=== PATIENT | male | born 1980 | race Asian ===

== ENCOUNTER 2017-04-14 19:56 | Emergency (ER) | payer SELFPAY ==
--- NOTE | 2017-04-14 20:33 | ED Physician Chart ---
Chief Complaint/HPI - Patient Information Date Seen:: 04/14/17 Time Seen:: 20:20 Chief Complaint:: anxiety History of Present Illness:: At work patient was apparently in the position on the floor shaking. Bystanders called 911. Patient complains of neck and back pain starting this am. Patient states he is under a lot of stress at work and has not been able sleep for the last 2 days. Allergies:: Allergies Allergy/AdvReac Type Severity Reaction Status Date / Time No Known Allergies Allergy Verified 04/14/17 20:12 Vitals:: Vital Signs - 8 hr 04/14/17 20:00 Temp 98.6 F HR 122 RR 21 BP 155/95 O2 Sat % 100 Historian:: Patient Review:: Nurse's Note Reviewed Review of Systems - Review of Systems General/Constitutional: No fever, No chills Skin: No skin lesions Head: No headache Eyes: No loss of vision ENT: No earache Neck: Neck pain Cardio Vascular: No chest pain Pulmonary: No SOB GI: No nausea, No vomiting G/U: No dysuria, No frequency Musculoskeletal: Back pain Endocrine: No polyuria, No polydipsia Psychiatric: No prior psych history Hematopoietic: No bruising Allergic/Immuno: No urticaria Neurological: No syncope, No focal symptoms Past Medical History - Past Medical History Past Medical History: No significant medical hx Family History: None Social History: Non Smoker, No Alcohol Surgical History: None Psychiatricy History: None Medication: None Family Medical History - Family Member Mother Ethnicity: Non- Physical Exam - Physical Examination General/Constitutional: Well-developed, well-nourished, Alert, No distress Head: Atraumatic Eyes: Lids, conjuctiva normal, PERRL Skin: Nl inspection, No rash, No skin lesions, No ecchymosis ENMT: External ears, nose nl, TM canals nl, Nasal exam nl, Lips, teeth, gums nl , Oropharynx nl, Tonsils nl Neck: No nuchal rigidity Respiratory: Nl effort/Exclusion, Clear to Auscultation Cardio Vascular: RRR GI: No tenderness/rebounding/guarding : No CVA tenderness Extremities: Normal digits & nails Neuro/Psych: Alert/oriented, No focal deficits ED Septic Shock - . Is Septic Shock (SBP<90, OR Lactate>4 mmol\L) present?: No - <6hrs of presentation: Vital Signs: Vital Signs - 8 hr 04/14/17 20:00 Temp 98.6 F HR 122 RR 21 BP 155/95 O2 Sat % 100 Reassessment (Disposition) - Reassessment Reassessment:: All symptoms appear to be related to work related stress Reassessment Condition:: Improved - Diagnosis Diagnosis:: Panic attack - Aftercare/Follow up Instructions Aftercare/Follow-Up Instructions:: Refer to Discharge Instructions - Patient Disposition Discharge/Transfer:: Home Condition at Disposition:: Stable, Improved
== END 2017-04-14 22:00 | disposition home or self-care (01) ==
LOC: ER 19:56
DX: F41.0 Panic disorder [episodic paroxysmal anxiety] (principal)
CPT/HCPCS: Z7502